=== PATIENT | female | born 1980 | race Caucasian/White ===

== ENCOUNTER 2017-10-27 04:09 | Emergency (ER) | payer OTHER ==
[~2017-10-27] VITALS: Ht 172.7 cm; Wt 63.5 kg
[2017-10-27 06:25] LABS: Calcium, Ionized (POC) 1.12 mmol/L (1.10-1.46); Chloride (POC) 102 mmol/L (98-108); Creatinine (POC) 0.9 mg/dL (0.6-1.0); Glucose (ISTAT POC) 100 mg/dL (70-99); Hemoglobin (POC) 12.2 g/dL (12.0-16.0); Potassium (POC) 3.9 mmol/L (3.5-5.5); Sodium (POC) 139 mmol/L (135-148); Total CO2 (POC) 25 mmol/L (21-32)
[2017-10-27] MEDS ORDERED: Nature-Throid65 MG PO (12:42)
== END 2017-10-27 13:07 | disposition short-term general hospital (02) ==
LOC: ER 04:09
PROVIDERS: Emergency Medicine
DX: S06.4X1A Epidural hemorrhage with loss of consciousness of 30 minutes or less, initial encounter (principal); S32.10XA Unspecified fracture of sacrum, initial encounter for closed fracture; R33.9 Retention of urine, unspecified; W17.89XA Other fall from one level to another, initial encounter
CPT/HCPCS: 36415; 51798; 72131; 72148; 80047; 85014; 99285